=== PATIENT | female | born 1930 | race Caucasian/White ===

== ENCOUNTER → 2017-06-21 | Outpatient (CLI) | payer MEDICARE, BC | END | disposition home or self-care (01) | LOC: KCIC CT 10:46 | DX: G30.9 Alzheimer's disease, unspecified (principal); G31.89 Other specified degenerative diseases of nervous system; I99.8 Other disorder of circulatory system; R90.82 White matter disease, unspecified; R26.81 Unsteadiness on feet; F02.80 Dementia in other diseases classified elsewhere, unspecified severity, without behavioral disturbance, psychotic disturbance, mood disturbance, and anxiety | CPT/HCPCS: 70450 ==